=== PATIENT | male | born 1960 | race Caucasian/White ===

== ENCOUNTER 2018-11-27 08:24 | Emergency (ER) | payer OTHER ==
[2018-11-27] MEDS ORDERED: Oseltamivir 75 MG CAP ONE (09:04)
[2018-11-27] MEDS ORDERED: methylPREDNISolone Sod Succ/PF 125 MG/2 ML VIAL ONE (09:04)
[2018-11-27] MEDS ORDERED: Aspirin Chewable 81 MG TAB ONE (09:04)
[2018-11-27 09:07] LABS: #Basophils 0.1 thou/uL (0.0-0.2); #Neutrophils 11.6 thou/uL (1.40-6.50); %Basophils 0.4 % (0.0-1.0); %Eosinophils 0.2 % (0.0-10.0); %Lymphocytes 7.1 % (21.0-51.0); %Monocytes 7.2 % (0.0-10.0); %Neutrophils 85.1 % (42.0-75.0); Mean Corpuscular HGB CONC 31.2 g/dL (32.0-36.0); Mean Corpuscular Hemoglobin 27.4 pg (27.0-31.0); Mean Corpuscular Volume 87.8 fL (78.0-98.0); Mean Platelet Volume 7.4 fL (7.4-10.4); Platelet Count 169 thou/uL (130-400); RBC Distribution Width 14.3 % (11.5-14.5); Red Blood Cell (RBC) Count 4.75 mill/uL (4.70-6.10); White Blood Cell (WBC) Count 13.7 thou/uL (4.8-10.8)
[2018-11-27] MEDS ORDERED: Piperacillin/Tazobactam 4.5 GM VIAL ONE (09:19)
[2018-11-27] MEDS ORDERED: Sodium Chloride 0.9% 100 ML ONE ×2 (09:20→09:22)
[2018-11-27 09:22] LABS: ALT (SGPT) 50 U/L (8-55); AST (SGOT) 22 U/L (5-34); Albumin 3.9 g/dL (3.5-5.0); Alkaline Phosphatase 99 U/L (40-150); Anion Gap 15 mmol/L (10-20); BUN (Urea Nitrogen) 20 mg/dL (8.4-25.7); Bilirubin, Total 1.5 mg/dL (0.2-1.2); Calc. Creatinine Clearance 0 mL/min (70-130); Calcium 9.7 mg/dL (7.8-10.44); Carbon Dioxide 31 mmol/L (22-29); Chloride 96 mmol/L (98-107); Estimated GFR-MDRD 84; Globulin 2.4 g/dL (2.4-3.5); Glucose 146 mg/dL (70-105); Potassium 4.8 mmol/L (3.5-5.1); Protein, Total 6.3 g/dL (6.0-8.3); Sodium 137 mmol/L (136-145)
[2018-11-27 09:32] LABS: D-Dimer Test 0.87 *mcg/mL (0.27-0.43); INR-International Normal Ratio 1.3; PTT 42.2 SEC (22.9-36.1); Prothrombin Time 16.6 SEC (12.0-14.7)
--- NOTE | 2018-11-27 10:31 | RAD ---
CHEST 1 VIEW: Date: 11/27/18 INDICATION: Shortness of breath. COMPARISON: Prior exam dated 09/17/17. FINDINGS: There is patchy air space opacity within the right lower lobe, which is new. Mild cardiomegaly persis ts. Left lung is clear. No pneumothorax is evident. No acute osseous abnormality is noted. IMPRESSION: 1. Right lower lobe air space opacity may reflect pneumonia. 2 view chest radiograph may be helpful for further characterization. 2. Stable mild cardiomegaly. POS: [facility]
== END 2018-11-27 10:09 | disposition short-term general hospital (02) ==
LOC: BURERS 08:24
DX: A41.9 Sepsis, unspecified organism (principal); J18.1 Lobar pneumonia, unspecified organism; I10 Essential (primary) hypertension; M10.9 Gout, unspecified; E78.00 Pure hypercholesterolemia, unspecified; J44.9 Chronic obstructive pulmonary disease, unspecified; G47.30 Sleep apnea, unspecified; Z87.891 Personal history of nicotine dependence; Z79.899 Other long term (current) drug therapy; Z79.82 Long term (current) use of aspirin; Z79.01 Long term (current) use of anticoagulants; Z79.51 Long term (current) use of inhaled steroids
CPT/HCPCS: 71045; 80053; 83605; 83880; 84484; 85025; 85379; 85610; 85730; 87040; 87070; 87205; 87804; 93005; 94760; 96365; 96375; J1956; J2543; J2930; J3490; J7620